=== PATIENT | male | born 1970 | race Caucasian/White ===

== ENCOUNTER 2017-05-06 22:26 | Emergency (ER) | payer OTHER ==
[~2017-05-06] VITALS: Ht 170.2 cm; Wt 116.0 kg
[~2017-05-06 22:26] MED LIST: LISINOPRIL10 MG PO; MOTRIN800 MG PO
[2017-05-06 22:52] VITALS: BP 140/88
[2017-05-07] MEDS ORDERED: ERYTHROMYCIN O3.5 GM RIGHT EYE (00:26)
[2017-05-07] MEDS ORDERED: TOBREX5 ML RIGHT EYE (00:26)
== END 2017-05-07 00:36 | disposition home or self-care (01) ==
LOC: EME 22:26
DX: S05.01XA Injury of conjunctiva and corneal abrasion without foreign body, right eye, initial encounter (principal); X58.XXXA Exposure to other specified factors, initial encounter
CPT/HCPCS: 99281; 99284